=== PATIENT | female | born 1965 | race Caucasian/White ===

== ENCOUNTER 2021-08-06 05:44 | Emergency (ER) | payer MEDICAID ==
[~2021-08-06] VITALS: Ht 160 cm; Wt 66.0 kg
[~2021-08-06 05:44] MED LIST: BENZ-16 MT; IBUP-2029 MT; TOPUD MT
[2021-08-06] MEDS ORDERED: TOPUD PO (06:45)
[2021-08-06] MEDS ORDERED: ACETAMINOPHEN 325MG TABLET PO ONE (06:45)
[2021-08-06 07:00] VITALS: BP 135/90
== END 2021-08-06 07:09 | disposition home or self-care (01) ==
LOC: ER 05:44
DX: U07.1 COVID-19 (principal); I10 Essential (primary) hypertension; J45.909 Unspecified asthma, uncomplicated
CPT/HCPCS: 99283; C9803; U0003; U0005

== ENCOUNTER 2021-08-14 05:47 | Emergency (ER) | payer MEDICAID ==
[~2021-08-14] VITALS: Ht 154.9 cm; Wt 64.0 kg
[~2021-08-14 05:47] MED LIST changes: +TOPUD PO
[2021-08-14] MEDS ORDERED: ONDANSETRON HCL 4MG/2ML INJ IV STA (06:08)
[2021-08-14] MEDS ORDERED: SODIUM CHLORIDE 0.9% 1,000 ML IV ONE (06:15)
[2021-08-14 08:37] LABS: EOSINOPHILS % 2.2 % (0.0-5.0); HEMATOCRIT. 43.6 % (36.0-48.0); HEMOGLOBIN. 14.9 g/dL (12.0-16.0); LYMPHOCYTES % 44.4 % (20.0-50.0); MEAN CORPUSCULAR HEMOGLOBIN 31.8 pg (28.0-32.0); MEAN CORPUSCULAR VOLUME 92.9 fL (81.0-99.0); MONOCYTES % 9.3 % (2.0-8.0); NEUTROPHILS % 43.1 % (40.0-76.0); PLATELET 241 x1000/uL (130-400); RED BLOOD CELL COUNT 4.69 mill/uL (4.2-5.4); RED CELL DISTRIBUTION WIDTH 13.1 % (11.6-14.6)
[2021-08-14 08:39] LABS: CHLORIDE 100 mEq/L (98-107)
[2021-08-14] MEDS ORDERED: ONDA4TAB5 MT (08:55)
[2021-08-14 10:20] LABS: CLARITY URINE CLOUDY (CLEAR); COLOR URINE DARK YELLOW (YELLOW); KETONES URINE 3+ (NEGATIVE); LEUKOCYTE ESTERASE URINE TRACE (NEGATIVE); NITRITE URINE NEGATIVE (NEGATIVE); OCCULT BLOOD URINE NEGATIVE (NEGATIVE); PH URINE 5.5 (4.5-8.0); PROTEIN URINE NEGATIVE (NEGATIVE); SPECIFIC GRAVITY URINE 1.023 (1.005-1.030)
[2021-08-14 10:40] VITALS: BP 131/78
== END 2021-08-14 10:39 | disposition home or self-care (01) ==
LOC: ER 05:47
DX: R11.2 Nausea with vomiting, unspecified (principal); R10.13 Epigastric pain; I10 Essential (primary) hypertension; J45.909 Unspecified asthma, uncomplicated
CPT/HCPCS: 36415; 71045; 80053; 81003; 83880; 84484; 85025; 93005; 96361; 96374; 99285; J2405; J7030; Z7610